=== PATIENT | female | born 1930 | race African-American/Black ===

== ENCOUNTER 2018-04-10 23:26 | Inpatient (IN) | payer MEDICARE, MEDICAID ==
[~2018-04-10] VITALS: Ht 177.8 cm; Wt 91.2 kg
[2018-04-11] MEDS ORDERED: KETOROLAC 30MG/ML VIAL IV STA (00:04)
[2018-04-11 00:50] LABS: BASOPHILS % 0.7 % (0.0-2.0); EOSINOPHILS % 0.5 % (0.0-5.0); HEMATOCRIT. 29.7 % (36.0-48.0); HEMOGLOBIN. 9.3 g/dL (12.0-16.0); LYMPHOCYTES % 19.2 % (20.0-50.0); MEAN CORPUSCULAR HEMOGLOBIN 30.3 pg (28.0-32.0); MEAN CORPUSCULAR VOLUME 96.7 fL (81.0-99.0); MONOCYTES % 2.1 % (2.0-8.0); NEUTROPHILS % 77.5 % (40.0-76.0); RED BLOOD CELL COUNT 3.08 mill/uL (4.2-5.4); RED CELL DISTRIBUTION WIDTH 16.3 % (11.6-14.6)
[2018-04-11 00:52] LABS: CHLORIDE 107 mEq/L (98-107)
[2018-04-11] MEDS ORDERED: DEXTROSE 50% WATER 50ML SYRINGE IV NR (01:15)
[2018-04-11] MEDS ORDERED: ALBUTEROL (0.083%) 2.5MG/3ML NEB HHN NR (01:15)
[2018-04-11] MEDS ORDERED: SODIUM POLYSTYRENE SULFONATE 15 G/60 ML BOT PO NR ×2 (01:15→13:30)
[2018-04-11] MEDS ORDERED: SODIUM BICARBONATE 8.4% 1 MEQ/ML 50ML SYR IV NR (01:15)
[2018-04-11] MEDS ORDERED: CALCIUM CHLORIDE 1GM/10ML SYR IV NR (01:15)
[2018-04-11] MEDS ORDERED: INSULIN REGULAR (HUMULIN R) 300UNITS/3ML IV NR (01:15)
[2018-04-11 01:25] LABS: PLATELET 222 x1000/uL (130-400)
[2018-04-11 01:26] LABS: MEAN PLATELET VOLUME 9.1 fl (7.4-10.4)
[2018-04-11] MEDS ORDERED: ALBUTEROL (0.5%) 2.5MG/0.5ML NEB HHN ONE (03:01)
[2018-04-11] MEDS ORDERED: ONDANSETRON HCL 4MG/2ML INJ IV PRN (03:15)
[2018-04-11] MEDS ORDERED: HYDROCODONE/ACETAMINOPHEN 5/325MG TABLET PO PRN (03:15)
[2018-04-11] MEDS ORDERED: CLONIDINE 0.1MG TABLET PO PRN (03:15)
[2018-04-11] MEDS ORDERED: GUAIFENESIN 200MG/10ML SUGAR FREE UDC PO PRN (03:15)
[2018-04-11] MEDS ORDERED: HYDROMORPHONE HCL/PF 2MG/ML CPJ IV PRN (03:15)
[2018-04-11] MEDS ORDERED: DOCUSATE SODIUM 100MG CAPSULE PO PRN (03:15)
[2018-04-11] MEDS ORDERED: LORAZEPAM 2MG/ML CPJ IV PRN (03:15)
[2018-04-11] MEDS ORDERED: ACETAMINOPHEN 325MG TABLET PO PRN (03:15)
[2018-04-11 06:45] LABS: CREATINE KINASE MB FRACTION 2.1 ng/mL (0.5-3.6)
[2018-04-11 06:55] VITALS: BP 161/51
[2018-04-11 08:32] VITALS: BP 154/58
[2018-04-11] MEDS: ASPIRIN 81MG EC TABLET PO SCH (09:18)
[2018-04-11] MEDS: ENOXAPARIN 40MG/0.4ML SYR SUBCUT SCH (09:19)
[2018-04-11] MEDS ORDERED: ERGO400C PO (09:32)
[2018-04-11] MEDS ORDERED: ASPI-1159 PO (09:32)
[2018-04-11] MEDS ORDERED: VALS80TA2 PO (09:32)
[2018-04-11] MEDS ORDERED: METO25TA6 PO (09:32)
[2018-04-11] MEDS ORDERED: ATOR40TA70 PO (09:32)
[2018-04-11] MEDS: SODIUM CHLORIDE 0.9% 1,000 ML IV SCH (11:45)
[2018-04-11 12:32] VITALS: BP 148/66
[2018-04-11 12:40] VITALS: BP 147/48
[2018-04-11 16:14] VITALS: BP 154/58
[2018-04-11 20:00] VITALS: BP 157/47
[2018-04-11] MEDS: ATORVASTATIN CALCIUM 40MG TABLET PO SCH (20:51)
[2018-04-12 00:04] VITALS: BP 111/67
[2018-04-12] MEDS: SODIUM CHLORIDE 0.9% 1,000 ML IV SCH ×2 (00:50→14:25)
[2018-04-12 04:00] VITALS: BP 159/66
[2018-04-12 06:58] LABS: BASOPHILS % 0.9 % (0.0-2.0); EOSINOPHILS % 3.3 % (0.0-5.0); HEMATOCRIT. 23.3 % (36.0-48.0); HEMOGLOBIN. 7.7 g/dL (12.0-16.0); MEAN CORPUSCULAR HEMOGLOBIN 31.3 pg (28.0-32.0); MEAN CORPUSCULAR VOLUME 94.8 fL (81.0-99.0); MEAN PLATELET VOLUME 8.6 fl (7.4-10.4); MONOCYTES % 6.3 % (2.0-8.0); NEUTROPHILS % 51.5 % (40.0-76.0); PLATELET 194 x1000/uL (130-400); RED BLOOD CELL COUNT 2.46 mill/uL (4.2-5.4); RED CELL DISTRIBUTION WIDTH 15.7 % (11.6-14.6)
[2018-04-12 08:00] VITALS: BP 115/61
[2018-04-12] MEDS: ENOXAPARIN 40MG/0.4ML SYR SUBCUT SCH (09:00)
[2018-04-12] MEDS: ASPIRIN 81MG EC TABLET PO SCH (09:00)
[2018-04-12 10:12] LABS: CHLORIDE 110 mEq/L (98-107)
[2018-04-12 10:19] LABS: LDL CHOLESTEROL 63 mg/dL (5-100)
[2018-04-12 10:21] LABS: HDL CHOLESTEROL 49 mg/dL (40-59)
[2018-04-12 11:25] VITALS: BP 140/59
[2018-04-12] MEDS ORDERED: SODIUM POLYSTYRENE SULFONATE 15 G/60 ML BOT PO ONE (13:45)
[2018-04-12] MEDS ORDERED: SODIUM POLYSTYRENE SULFONATE 15 G/60 ML BOT PO NR (14:30)
[2018-04-12 17:47] LABS: CLARITY URINE CLOUDY (CLEAR); COLOR URINE YELLOW (YELLOW); KETONES URINE NEGATIVE (NEGATIVE); LEUKOCYTE ESTERASE URINE 2+ (NEGATIVE); NITRITE URINE POSITIVE (NEGATIVE); OCCULT BLOOD URINE 1+ (NEGATIVE); PROTEIN URINE TRACE (NEGATIVE); SPECIFIC GRAVITY URINE 1.003 (1.005-1.030); UROBILINOGEN URINE 0.2 E.U./dL (0.2-1.0)
[2018-04-12] MEDS: ATORVASTATIN CALCIUM 40MG TABLET PO SCH (21:10)
[2018-04-13] VITALS: BP 156/56
[2018-04-13] MEDS: SODIUM CHLORIDE 0.9% 1,000 ML IV SCH (03:45)
[2018-04-13 04:00] VITALS: BP 159/51
[2018-04-13 06:28] LABS: BASOPHILS % 0.8 % (0.0-2.0); EOSINOPHILS % 4.4 % (0.0-5.0); HEMATOCRIT. 23.8 % (36.0-48.0); HEMOGLOBIN. 7.8 g/dL (12.0-16.0); LYMPHOCYTES % 24.6 % (20.0-50.0); MEAN CORPUSCULAR HEMOGLOBIN 30.8 pg (28.0-32.0); MEAN CORPUSCULAR VOLUME 93.9 fL (81.0-99.0); MEAN PLATELET VOLUME 8.7 fl (7.4-10.4); MONOCYTES % 6.4 % (2.0-8.0); NEUTROPHILS % 63.8 % (40.0-76.0); PLATELET 193 x1000/uL (130-400); RED BLOOD CELL COUNT 2.53 mill/uL (4.2-5.4); RED CELL DISTRIBUTION WIDTH 15.7 % (11.6-14.6)
[2018-04-13] MEDS: ASPIRIN 81MG EC TABLET PO SCH (08:39)
[2018-04-13] MEDS: ENOXAPARIN 40MG/0.4ML SYR SUBCUT SCH (08:40)
[2018-04-13 09:52] LABS: CHLORIDE 116 mEq/L (98-107)
[2018-04-13 12:00] VITALS: BP 176/62
[2018-04-13 16:00] VITALS: BP 188/71
[2018-04-13] MEDS ORDERED: HYDRALAZINE HCL 50MG TABLET PO SCH (16:00)
[2018-04-13] MEDS ORDERED: SODIUM CHLORIDE 0.45% 1,000 ML IV SCH (18:00)
[2018-04-13 20:00] VITALS: BP 184/55
[2018-04-13] MEDS: HYDRALAZINE HCL 50MG TABLET PO SCH (20:46)
[2018-04-13] MEDS: ATORVASTATIN CALCIUM 40MG TABLET PO SCH (20:46)
[2018-04-13 21:49] VITALS: BP 154/49
[2018-04-14] VITALS: BP 173/62
[2018-04-14 00:15] VITALS: BP 166/52
[2018-04-14 04:00] VITALS: BP 157/48
[2018-04-14] MEDS: HYDRALAZINE HCL 50MG TABLET PO SCH (05:29)
[2018-04-14 08:43] VITALS: BP 119/34
[2018-04-14 10:10] LABS: BASOPHILS % 0.7 % (0.0-2.0); EOSINOPHILS % 4.5 % (0.0-5.0); HEMATOCRIT. 23.8 % (36.0-48.0); HEMOGLOBIN. 7.7 g/dL (12.0-16.0); MEAN CORPUSCULAR HEMOGLOBIN 30.4 pg (28.0-32.0); MEAN CORPUSCULAR VOLUME 93.8 fL (81.0-99.0); MEAN PLATELET VOLUME 8.6 fl (7.4-10.4); NEUTROPHILS % 60.8 % (40.0-76.0); PLATELET 219 x1000/uL (130-400); RED BLOOD CELL COUNT 2.54 mill/uL (4.2-5.4); RED CELL DISTRIBUTION WIDTH 15.4 % (11.6-14.6)
[2018-04-14 10:36] VITALS: BP 128/82
[2018-04-14] MEDS ORDERED: EPOETIN ALFA 10000UNITS/ML VIAL SUBCUT SCH (21:00)
[2018-04-15 13:06] LABS: A/G RATIO 0.8 (0.7-1.7); ALPHA-1-GLOBULIN 0.2 g/dL (0.0-0.4); ALPHA-2-GLOBULIN 0.6 g/dL (0.4-1.0); BETA GLOBULIN 0.9 g/dL (0.7-1.3); COMPLEMENT C3 106 mg/dL (82-167); GAMMA GLOBULINS 2.2 g/dL (0.4-1.8); GLOBULIN TOTAL 3.9 g/dL (2.2-3.9); M-SPIKE Not Observed g/dL (Not Observed); TOTAL PROTEIN SERUM 6.9 g/dL (6.0-8.5)
[2018-04-16] MEDS ORDERED: VALS80TA30 MT (00:56)
[2018-04-16] MEDS ORDERED: METO25TA6 MT (00:58)
[2018-04-16 13:06] LABS: ANTI-NUCLEAR ANTIBODIES DIRECT Positive (Negative)
== END 2018-04-14 11:20 | disposition home health service (06) | DRG 422 ==
LOC: ER 23:26 → ENRESERV 04-11 02:53 → 6WST 04-11 06:49
PROVIDERS: ADMIT Hospitalist; ATTEND Hospitalist
DX: E87.5 Hyperkalemia (principal); E86.0 Dehydration; N17.9 Acute kidney failure, unspecified; E87.2 Acidosis; E11.22 Type 2 diabetes mellitus with diabetic chronic kidney disease; R07.9 Chest pain, unspecified; R94.31 Abnormal electrocardiogram [ECG] [EKG]; R01.1 Cardiac murmur, unspecified; R09.89 Other specified symptoms and signs involving the circulatory and respiratory systems; E87.1 Hypo-osmolality and hyponatremia; D63.8 Anemia in other chronic diseases classified elsewhere; N18.9 Chronic kidney disease, unspecified; R00.1 Bradycardia, unspecified; J45.909 Unspecified asthma, uncomplicated; I12.9 Hypertensive chronic kidney disease with stage 1 through stage 4 chronic kidney disease, or unspecified chronic kidney disease; Z88.0 Allergy status to penicillin
CPT/HCPCS: 36415; 71045; 76770; 80048; 80061; 82270; 82550; 82553; 82962; 83880; 84155; 84165; 84484; 86038; 86160; 93005; 93306; 93880; 93970; 94640; 99285; A6261; C1893; J1650; J1815; J1885; J2060; J3490; J7030; J7611

== ENCOUNTER 2018-09-30 08:58 | Emergency (ER) | payer MEDICARE, MEDICAID ==
[~2018-09-30] VITALS: Ht 167.6 cm; Wt 92.3 kg
[~2018-09-30 08:58] MED LIST: ATOR40TA70 PO; METO25TA6 MT; VALS80TA30 MT
[2018-09-30 09:34] LABS: BASOPHILS % 0.3 % (0.0-2.0); HEMATOCRIT. 32.8 % (36.0-48.0); HEMOGLOBIN. 10.5 g/dL (12.0-16.0); LYMPHOCYTES % 12.8 % (20.0-50.0); MEAN CORPUSCULAR HEMOGLOBIN 31.8 pg (28.0-32.0); MEAN CORPUSCULAR VOLUME 98.8 fL (81.0-99.0); MEAN PLATELET VOLUME 8.5 fl (7.4-10.4); MONOCYTES % 2.7 % (2.0-8.0); NEUTROPHILS % 84.2 % (40.0-76.0); PLATELET 232 x1000/uL (130-400); RED BLOOD CELL COUNT 3.32 mill/uL (4.2-5.4); RED CELL DISTRIBUTION WIDTH 15.7 % (11.6-14.6)
[2018-09-30 09:40] LABS: INR 1.1
[2018-09-30 09:49] LABS: CHLORIDE 111 mEq/L (98-107)
[2018-09-30 09:54] LABS: ETHANOL BLOOD < 10 mg/dL
[2018-09-30 09:58] LABS: LDL CHOLESTEROL 105 mg/dL (5-100)
[2018-09-30] MEDS ORDERED: IOHEXOL-350 100 ML BOTTLE ONE (12:05)
[2018-09-30 12:15] LABS: CLARITY URINE CLEAR (CLEAR); COLOR URINE YELLOW (YELLOW); KETONES URINE NEGATIVE (NEGATIVE); LEUKOCYTE ESTERASE URINE NEGATIVE (NEGATIVE); NITRITE URINE NEGATIVE (NEGATIVE); OCCULT BLOOD URINE 2+ (NEGATIVE); PROTEIN URINE 3+ (NEGATIVE); UROBILINOGEN URINE 0.2 E.U./dL (0.2-1.0)
[2018-09-30 12:40] LABS: *BENZODIAZEPINES SCREEN URINE NEGATIVE (NEGATIVE); *COCAINE SCREEN URINE NEGATIVE (NEGATIVE); METHADONE URINE SCREEN NEGATIVE (NEGATIVE); OPIATES URINE SCREEN NEGATIVE (NEGATIVE)
[2018-09-30 12:41] LABS: *BARBITURATES SCREEN URINE NEGATIVE (NEGATIVE); CANNABINOID URINE SCREEN NEGATIVE (NEGATIVE); PHENCYCLIDINE URINE SCREEN NEGATIVE (NEGATIVE)
[2018-09-30 12:42] LABS: *AMPHETAMINES SCREEN URINE NEGATIVE (NEGATIVE)
[2018-09-30 12:56] VITALS: BP 238/113
== END 2018-09-30 13:16 | disposition short-term general hospital (02) ==
LOC: ER 08:58
DX: I63.411 Cerebral infarction due to embolism of right middle cerebral artery (principal); E78.00 Pure hypercholesterolemia, unspecified; I10 Essential (primary) hypertension; J45.909 Unspecified asthma, uncomplicated; I25.2 Old myocardial infarction; M48.00 Spinal stenosis, site unspecified; Z88.0 Allergy status to penicillin; Z79.899 Other long term (current) drug therapy
CPT/HCPCS: 36415; 70450; 70496; 71045; 80053; 80305; 80320; 81003; 82962; 83721; 84484; 85025; 85610; 93005; 99285; Q9967; G0480

== ENCOUNTER 2019-01-16 18:45 | Inpatient (IN) | payer MEDICARE, MEDICAID ==
[~2019-01-16] VITALS: Ht 167.6 cm; Wt 89.8 kg
[2019-01-16 23:11] LABS: BASOPHILS % 0.3 % (0.0-2.0); EOSINOPHILS % 0.5 % (0.0-5.0); HEMATOCRIT. 23.2 % (36.0-48.0); HEMOGLOBIN. 7.5 g/dL (12.0-16.0); LYMPHOCYTES % 13.4 % (20.0-50.0); MEAN CORPUSCULAR HEMOGLOBIN 31.5 pg (28.0-32.0); MEAN CORPUSCULAR VOLUME 97.2 fL (81.0-99.0); MEAN PLATELET VOLUME 7.2 fl (7.4-10.4); MONOCYTES % 7.7 % (2.0-8.0); NEUTROPHILS % 78.1 % (40.0-76.0); PLATELET 423 x1000/uL (130-400); RED BLOOD CELL COUNT 2.39 mill/uL (4.2-5.4); RED CELL DISTRIBUTION WIDTH 15.3 % (11.6-14.6)
[2019-01-16 23:18] LABS: CHLORIDE 108 mEq/L (98-107)
[2019-01-17] MEDS ORDERED: CLINDAMYCIN 600 MG in DEXTROSE 5% WATER 50 ML IV ONE (00:45)
[2019-01-17] MEDS ORDERED: CLINDAMYCIN 600 MG in SODIUM CHLORIDE 0.9% 50 ML IV NR (01:30)
[2019-01-17 02:44] LABS: CLARITY URINE CLOUDY (CLEAR); COLOR URINE YELLOW (YELLOW); KETONES URINE NEGATIVE (NEGATIVE); LEUKOCYTE ESTERASE URINE NEGATIVE (NEGATIVE); NITRITE URINE NEGATIVE (NEGATIVE); OCCULT BLOOD URINE NEGATIVE (NEGATIVE); PROTEIN URINE 2+ (NEGATIVE); SPECIFIC GRAVITY URINE 1.017 (1.005-1.030); UROBILINOGEN URINE 0.2 E.U./dL (0.2-1.0)
[2019-01-17] MEDS ORDERED: ONDANSETRON HCL 4MG/2ML INJ IV PRN (06:15)
[2019-01-17] MEDS ORDERED: ACETAMINOPHEN 325MG TABLET PO PRN (06:15)
[2019-01-17 08:00] VITALS: BP 137/84
[2019-01-17] MEDS: ASPIRIN 81MG EC TABLET PO SCH (09:20)
[2019-01-17] MEDS: ENOXAPARIN 30MG/0.3ML SYR SUBCUT SCH ×2 (09:21→20:42)
[2019-01-17] MEDS: DAPTOMYCIN 250 MG in SODIUM CHLORIDE 0.9% 50 ML IV SCH (10:57)
[2019-01-17] MEDS: SODIUM CHLORIDE 0.45% 1,000 ML IV SCH (10:58)
[2019-01-17 20:00] VITALS: BP 141/54
[2019-01-17] MEDS: CLONIDINE 0.1MG TABLET PO PRN (23:50)
[2019-01-18] VITALS: BP 182/68
[2019-01-18] MEDS: SODIUM CHLORIDE 0.45% 1,000 ML IV SCH (02:06)
[2019-01-18 04:00] VITALS: BP 159/65
[2019-01-18] MEDS: HYDROCODONE/ACETAMINOPHEN 5/325MG TABLET PO PRN ×2 (05:54→23:20)
[2019-01-18] MEDS: ASPIRIN 81MG EC TABLET PO SCH (08:46)
[2019-01-18] MEDS: DAPTOMYCIN 250 MG in SODIUM CHLORIDE 0.9% 50 ML IV SCH (08:46)
[2019-01-18] MEDS: ENOXAPARIN 30MG/0.3ML SYR SUBCUT SCH (08:47)
[2019-01-18 09:25] LABS: BASOPHILS % 0.3 % (0.0-2.0); EOSINOPHILS % 1.3 % (0.0-5.0); LYMPHOCYTES % 13.9 % (20.0-50.0); MEAN CORPUSCULAR HEMOGLOBIN 30.6 pg (28.0-32.0); MEAN PLATELET VOLUME 7.1 fl (7.4-10.4); NEUTROPHILS % 75.5 % (40.0-76.0); PLATELET 417 x1000/uL (130-400); RED CELL DISTRIBUTION WIDTH 15.3 % (11.6-14.6)
[2019-01-18 09:29] LABS: CHLORIDE 107 mEq/L (98-107)
[2019-01-18 09:30] LABS: HEMATOCRIT. 19.9 % (36.0-48.0); HEMOGLOBIN. 6.4 g/dL (12.0-16.0)
[2019-01-18] MEDS ORDERED: LIDOCAINE HCL 1% 20ML VIAL (Pyxis) INJ ONE (11:02)
[2019-01-18] MEDS ORDERED: SODIUM BICARBONATE 4% (2.4MEQ) 5ML VIAL IV ONE (11:03)
[2019-01-18] MEDS ORDERED: HEPARIN 100 UNITS/1 ML VIAL IVF PRN (12:00)
[2019-01-18 16:14] VITALS: BP 159/61
[2019-01-18 16:29] VITALS: BP 148/50
[2019-01-18 20:00] VITALS: BP 162/80
[2019-01-18] MEDS: CLONIDINE 0.1MG TABLET PO PRN (23:09)
[2019-01-19] VITALS: BP 164/45
[2019-01-19] MEDS: CLONIDINE 0.1MG TABLET PO PRN (00:21)
[2019-01-19 01:23] LABS: HEMATOCRIT 21.8 % (36.0-48.0); HEMOGLOBIN 7.3 g/dL (12.0-16.0)
[2019-01-19 04:00] VITALS: BP 141/44
[2019-01-19 08:00] VITALS: BP 132/46
[2019-01-19] MEDS: DAPTOMYCIN 250 MG in SODIUM CHLORIDE 0.9% 50 ML IV SCH (08:00)
[2019-01-19] MEDS: ASPIRIN 81MG EC TABLET PO SCH (09:24)
[2019-01-19] MEDS ORDERED: LIDOCAINE HCL 4% CREAM 76GM TUBE TP PRN (10:45)
[2019-01-19 12:00] VITALS: BP 135/47
[2019-01-19] MEDS: SODIUM CHLORIDE 0.45% 1,000 ML IV SCH (12:15)
[2019-01-19] MEDS: HYDROCODONE/ACETAMINOPHEN 5/325MG TABLET PO PRN (14:10)
[2019-01-19 16:00] VITALS: BP 143/46
[2019-01-19 16:16] LABS: HEMATOCRIT 24.6 % (36.0-48.0)
[2019-01-19 20:00] VITALS: BP 152/66
[2019-01-20] VITALS: BP 199/83
[2019-01-20] MEDS: CLONIDINE 0.1MG TABLET PO PRN (00:58)
[2019-01-20] MEDS: SODIUM CHLORIDE 0.45% 1,000 ML IV SCH (03:53)
[2019-01-20 04:00] VITALS: BP 165/67
[2019-01-20 08:00] VITALS: BP 132/64
[2019-01-20] MEDS: DAPTOMYCIN 250 MG in SODIUM CHLORIDE 0.9% 50 ML IV SCH (08:06)
[2019-01-20] MEDS: ASPIRIN 81MG EC TABLET PO SCH (08:06)
[2019-01-20 12:00] VITALS: BP 138/66
[2019-01-20 16:00] VITALS: BP 146/65
[2019-01-20] MEDS: HYDROCODONE/ACETAMINOPHEN 5/325MG TABLET PO PRN (16:22)
[2019-01-20 17:24] VITALS: BP 146/5
== END 2019-01-20 19:55 | disposition home or self-care (01) | DRG 314 ==
LOC: ER 18:45 → 6EST 01-17 02:51 → EDBEDREQTM 01-17 03:13 → EDBEDREQ 01-17 03:13 → ENRESERV 01-17 04:55
PROVIDERS: ADMIT Hospitalist; ATTEND Hospitalist
PROC: 05H533Z Insertion of Infusion Device into Right Subclavian Vein, Percutaneous Approach (ICD-10-PCS; 2019-01-18)
PROC: B546ZZA Ultrasonography of Right Subclavian Vein, Guidance (ICD-10-PCS; 2019-01-18)
PROC: 30233N1 Transfusion of Nonautologous Red Blood Cells into Peripheral Vein, Percutaneous Approach (ICD-10-PCS; 2019-01-18)
PROC: 0QBM0ZZ Excision of Left Tarsal, Open Approach (ICD-10-PCS; principal; 2019-01-19)
DX: M86.8X7 Other osteomyelitis, ankle and foot (principal); E43 Unspecified severe protein-calorie malnutrition; L89.152 Pressure ulcer of sacral region, stage 2; N17.9 Acute kidney failure, unspecified; G93.41 Metabolic encephalopathy; I48.91 Unspecified atrial fibrillation; L03.116 Cellulitis of left lower limb; L89.020 Pressure ulcer of left elbow, unstageable; L97.529 Non-pressure chronic ulcer of other part of left foot with unspecified severity; D64.9 Anemia, unspecified; L02.612 Cutaneous abscess of left foot; E78.00 Pure hypercholesterolemia, unspecified; F03.90 Unspecified dementia, unspecified severity, without behavioral disturbance, psychotic disturbance, mood disturbance, and anxiety; I10 Essential (primary) hypertension; E78.5 Hyperlipidemia, unspecified; I73.9 Peripheral vascular disease, unspecified; J45.909 Unspecified asthma, uncomplicated; R79.89 Other specified abnormal findings of blood chemistry; B96.5 Pseudomonas (aeruginosa) (mallei) (pseudomallei) as the cause of diseases classified elsewhere; B95.61 Methicillin susceptible Staphylococcus aureus infection as the cause of diseases classified elsewhere; B95.2 Enterococcus as the cause of diseases classified elsewhere; M24.571 Contracture, right ankle; M24.572 Contracture, left ankle; I69.344 Monoplegia of lower limb following cerebral infarction affecting left non-dominant side; I25.2 Old myocardial infarction; Z74.01 Bed confinement status; Z91.19 Patient's noncompliance with other medical treatment and regimen; Z79.899 Other long term (current) drug therapy; Z88.0 Allergy status to penicillin; Z68.32 Body mass index [BMI] 32.0-32.9, adult
CPT/HCPCS: 36415; 36573; 71045; 73630; 73721; 81003; 83540; 83550; 83735; 85014; 85018; 85651; 86140; 86850; 86900; 86920; 87070; 87075; 87077; 87186; 93923; 93970; 96365; 99285; C1725; C1893; J0878; J1642; J1650; J3490; J7040; J7060; P9016

== ENCOUNTER 2019-01-25 01:54 | Inpatient (IN) | payer MEDICARE, MEDICAID ==
[2019-01-25] VITALS (47 sets, daily range): BP systolic 89–162; BP diastolic 48–96
[~2019-01-25] VITALS: Ht 167.6 cm; Wt 90.7 kg
[2019-01-25] MEDS ORDERED: MEROPENEM 1,000 MG in SODIUM CHLORIDE 0.9% 100 ML IV ONE (03:00)
[2019-01-25] MEDS ORDERED: SODIUM CHLORIDE 0.9% 1000ML BAG (SEPSIS BOLUS) IV ONE (03:00)
[2019-01-25] MEDS ORDERED: VANCOMYCIN 1 G PREMIX 200 ML IV ONE (03:00)
[2019-01-25] MEDS ORDERED: DILTIAZEM HCL 5MG/ML 5ML VIAL IV ONE ×2 (03:30→04:15)
[2019-01-25 03:35] LABS: CHLORIDE 108 mEq/L (98-107)
[2019-01-25 03:41] LABS: BASOPHILS % 0.5 % (0.0-2.0); EOSINOPHILS % 0.3 % (0.0-5.0); HEMOGLOBIN. 7.1 g/dL (12.0-16.0); MEAN CORPUSCULAR HEMOGLOBIN 30.5 pg (28.0-32.0); MEAN CORPUSCULAR VOLUME 95.2 fL (81.0-99.0); MEAN PLATELET VOLUME 7.5 fl (7.4-10.4); MONOCYTES % 5.1 % (2.0-8.0); NEUTROPHILS % 84.1 % (40.0-76.0); PLATELET 513 x1000/uL (130-400); RED BLOOD CELL COUNT 2.31 mill/uL (4.2-5.4); RED CELL DISTRIBUTION WIDTH 15.7 % (11.6-14.6)
[2019-01-25 04:23] LABS: PROTHROMBIN TIME 10.8 sec (9.6-11.0)
[2019-01-25] MEDS ORDERED: AMIODARONE HCL 900 MG in DEXT 5% WATER 482 ML IV PRN ×2 (05:00→05:30)
[2019-01-25] MEDS ORDERED: AMIODARONE HCL 150 MG in DEXT 5% WATER 100 ML IV ONE (05:00)
[2019-01-25] MEDS ORDERED: CLONIDINE 0.1MG TABLET PO PRN (05:30)
[2019-01-25] MEDS ORDERED: MAGNESIUM/ALUMINUM HYDROXIDE/SIMETHICONE 30ML UDC PO PRN (05:30)
[2019-01-25] MEDS ORDERED: LORAZEPAM 2MG/ML CPJ IV PRN (05:30)
[2019-01-25] MEDS ORDERED: DOCUSATE SODIUM 100MG CAPSULE PO PRN (05:30)
[2019-01-25] MEDS ORDERED: ONDANSETRON HCL 4MG/2ML INJ IV PRN (05:30)
[2019-01-25] MEDS ORDERED: ACETAMINOPHEN 325MG TABLET PO PRN (05:30)
[2019-01-25] MEDS ORDERED: HYDROCODONE/ACETAMINOPHEN 5/325MG TABLET PO PRN (05:30)
[2019-01-25] MEDS: MORPHINE SULFATE 2 MG/ML CPJ (NOT FOR IM USE) IV PRN ×2 (08:39→20:49)
[2019-01-25] MEDS: AMIODARONE HCL 900 MG in DEXT 5% WATER 482 ML IV SCH (09:00)
[2019-01-25] MEDS ORDERED: ENOXAPARIN 40MG/0.4ML SYR SUBCUT SCH (10:00)
[2019-01-25] MEDS ORDERED: METOPROLOL TARTRATE 25MG TABLET PO SCH (10:00)
[2019-01-25] MEDS ORDERED: DAPTOMYCIN 350 MG in SODIUM CHLORIDE 0.9% 50 ML IV SCH (11:00)
[2019-01-25 11:36] LABS: CLARITY URINE TURBID (CLEAR); COLOR URINE YELLOW (YELLOW); KETONES URINE NEGATIVE (NEGATIVE); LEUKOCYTE ESTERASE URINE 2+ (NEGATIVE); NITRITE URINE NEGATIVE (NEGATIVE); OCCULT BLOOD URINE NEGATIVE (NEGATIVE); PROTEIN URINE 1+ (NEGATIVE); SPECIFIC GRAVITY URINE 1.021 (1.005-1.030); UROBILINOGEN URINE 0.2 E.U./dL (0.2-1.0)
[2019-01-25 12:01] LABS: CREATINE KINASE MB FRACTION 1.8 ng/mL (0.5-3.6)
[2019-01-25] MEDS ORDERED: ASPI-1393 MT (12:06)
[2019-01-25 12:23] LABS: MEAN CORPUSCULAR HEMOGLOBIN 30.8 pg (28.0-32.0); MEAN PLATELET VOLUME 7.6 fl (7.4-10.4); PLATELET 412 x1000/uL (130-400); RED BLOOD CELL COUNT 1.91 mill/uL (4.2-5.4); RED CELL DISTRIBUTION WIDTH 16.1 % (11.6-14.6)
[2019-01-25 12:28] LABS: HEMOGLOBIN. 5.9 g/dL (12.0-16.0)
[2019-01-25 12:29] LABS: HEMATOCRIT. 18.5 % (36.0-48.0)
[2019-01-25] MEDS: DEXT 5%/0.45% NACL 1000ML 1,000 ML IV SCH ×2 (12:31→18:41)
[2019-01-25] MEDS: AMIODARONE HCL 200 MG TABLET PO SCH ×2 (12:31→20:38)
[2019-01-25] MEDS ORDERED: DEXTROSE 50% WATER 50ML SYRINGE IV PRN (12:45)
[2019-01-25] MEDS: INSULIN LISPRO 100 UNITS/ML SUBCUT SCH ×3 (13:20→20:46)
[2019-01-25] MEDS: BLOOD SUGAR DIAGNOSTIC STRIP TEST SCH ×3 (13:48→20:39)
[2019-01-25 13:59] LABS: PLATELET ESTIMATE NORMAL
[2019-01-25] MEDS ORDERED: VANCOMYCIN 500 MG PREMIX 100 ML IV NR (18:00)
[2019-01-25] MEDS: CEFTAZIDIME PENTAHYDRATE 1 G in DEXTROSE 5% WATER 50 ML IV SCH (18:56)
[2019-01-25] MEDS: METRONIDAZOLE 500 MG PREMIX 100 ML IV SCH (20:38)
[2019-01-25] MEDS ORDERED: METRONIDAZOLE 500 MG PREMIX 100 ML IV SCH (21:00)
[2019-01-26] VITALS (44 sets, daily range): BP systolic 86–172; BP diastolic 50–104
[2019-01-26] MEDS: CEFTAZIDIME PENTAHYDRATE 1 G in DEXTROSE 5% WATER 50 ML IV SCH ×2 (04:23→17:16)
[2019-01-26] MEDS: DEXT 5%/0.45% NACL 1000ML 1,000 ML IV SCH ×2 (04:23→20:27)
[2019-01-26] MEDS: AMIODARONE HCL 900 MG in DEXT 5% WATER 482 ML IV SCH (04:24)
[2019-01-26] MEDS: MORPHINE SULFATE 2 MG/ML CPJ (NOT FOR IM USE) IV PRN ×2 (04:53→12:53)
[2019-01-26 06:18] LABS: HEMATOCRIT. 32.7 % (36.0-48.0); HEMOGLOBIN. 10.3 g/dL (12.0-16.0); MEAN CORPUSCULAR VOLUME 95.2 fL (81.0-99.0); RED BLOOD CELL COUNT 3.43 mill/uL (4.2-5.4); RED CELL DISTRIBUTION WIDTH 16.7 % (11.6-14.6)
[2019-01-26 06:47] LABS: CHLORIDE 110 mEq/L (98-107)
[2019-01-26 06:56] LABS: T4 FREE 0.68 ng/dL (0.76-1.46)
[2019-01-26] MEDS: AMIODARONE HCL 200 MG TABLET PO SCH ×2 (08:34→20:27)
[2019-01-26] MEDS: METRONIDAZOLE 500 MG PREMIX 100 ML IV SCH ×2 (08:34→20:27)
[2019-01-26] MEDS: BLOOD SUGAR DIAGNOSTIC STRIP TEST SCH ×4 (08:35→21:15)
[2019-01-26] MEDS: INSULIN LISPRO 100 UNITS/ML SUBCUT SCH ×4 (09:02→21:00)
[2019-01-26 10:12] LABS: BG BASE EXCESS -8.3 mmol/L (-2.0-2.0); BG CARBOXYHEMOGLOBIN 0.3 % (0.5-1.5); BG DEOXYHEMOGLOBIN 2.2 % (0.0-5.0); BG FRACTION INSPIRED OXYGEN 21; BG METHEMOGLOBIN 0.3 % (0.0-1.5); BG OXYGEN SATURATION 97.8 % (92.0-98.5); BG OXYHEMOGLOBIN 97.2 % (94.0-97.0); BG PCO2 29.2 mmHg (35.0-45.0); BG PH 7.357 (7.350-7.450); BG PO2 102.4 mmHg (75.0-100.0); BG SAMPLE SITE RIGHT RADIAL; BG TOTAL HEMOGLOBIN 10.9 g/dL (12.0-18.0); BG VENT MODE ROOM AIR
[2019-01-26 10:13] LABS: NUCLEATED RED BLOOD CELLS 1 /100 WBC
[2019-01-26 10:15] LABS: PLATELET 372 x1000/uL (130-400)
[2019-01-26] MEDS ORDERED: AMIODARONE HCL 150 MG in DEXT 5% WATER 100 ML IV SCH (13:00)
[2019-01-26] MEDS: NYSTATIN POWDER 15GM TOP SCH ×2 (13:51→17:16)
[2019-01-26] MEDS: CITRIC ACID/SODIUM CITRATE SOLN 15ML UDC PO SCH (17:17)
[2019-01-27] VITALS (51 sets, daily range): BP systolic 80–161; BP diastolic 39–110
[2019-01-27] MEDS: CEFTAZIDIME PENTAHYDRATE 1 G in DEXTROSE 5% WATER 50 ML IV SCH ×2 (04:24→20:05)
[2019-01-27 05:44] LABS: HEMATOCRIT. 27.4 % (36.0-48.0); HEMOGLOBIN. 9.1 g/dL (12.0-16.0); MEAN CORPUSCULAR HEMOGLOBIN 30.4 pg (28.0-32.0); MEAN CORPUSCULAR VOLUME 91.9 fL (81.0-99.0); MEAN PLATELET VOLUME 7.1 fl (7.4-10.4); PLATELET 374 x1000/uL (130-400); RED BLOOD CELL COUNT 2.98 mill/uL (4.2-5.4); RED CELL DISTRIBUTION WIDTH 16.3 % (11.6-14.6)
[2019-01-27] MEDS: BLOOD SUGAR DIAGNOSTIC STRIP TEST SCH ×3 (07:50→20:14)
[2019-01-27] MEDS: INSULIN LISPRO 100 UNITS/ML SUBCUT SCH ×3 (08:20→20:15)
[2019-01-27] MEDS: CITRIC ACID/SODIUM CITRATE SOLN 15ML UDC PO SCH ×3 (08:55→19:00)
[2019-01-27] MEDS: AMIODARONE HCL 200 MG TABLET PO SCH ×2 (08:55→20:39)
[2019-01-27] MEDS: METRONIDAZOLE 500 MG PREMIX 100 ML IV SCH ×2 (09:00→20:39)
[2019-01-27] MEDS: NYSTATIN POWDER 15GM TOP SCH ×3 (09:01→20:00)
[2019-01-27 09:18] LABS: NUCLEATED RED BLOOD CELLS 1 /100 WBC
[2019-01-27 09:19] LABS: PLATELET ESTIMATE NORMAL
[2019-01-27] MEDS: DEXT 5%/0.45% NACL 1000ML 1,000 ML IV SCH (09:57)
[2019-01-27] MEDS ORDERED: VANCOMYCIN 1250MG in DEXTROSE 5% WATER 250ML IV NR (10:00)
[2019-01-27] MEDS ORDERED: VANCOMYCIN 1 G PREMIX 200 ML IV NR (10:00)
[2019-01-27 10:15] LABS: INR 1.2; PARTIAL THROMBOPLASTIN TIME 41.8 sec (23.4-31.0); PROTHROMBIN TIME 12.1 sec (9.6-11.0)
[2019-01-27] MEDS ORDERED: VANCOMYCIN HCL 500 MG/VIAL ONE (15:07)
[2019-01-27] MEDS ORDERED: FENTANYL CITRATE/PF 50MCG/ML 2ML VIAL ONE (15:17)
[2019-01-27] MEDS ORDERED: LIDOCAINE HCL/PF 1% 10 MG/ML 5ML VIAL ONE (15:17)
[2019-01-27] MEDS ORDERED: PROPOFOL 200MG/20ML VIAL IV ONE (15:17)
[2019-01-27] MEDS ORDERED: CLINDAMYCIN 900 MG PREMIX 50 ML IV ONE (15:27)
[2019-01-27] MEDS ORDERED: EPHEDRINE SULFATE 50MG/ML VIAL ONE (16:50)
[2019-01-27] MEDS ORDERED: STERILE WATER FOR INJECTION 10ML VIAL ONE (16:52)
[2019-01-27] MEDS ORDERED: BUPIVACAINE HCL/PF 0.25% (2.5MG/ML) 10ML ONE (17:11)
[2019-01-27] MEDS ORDERED: FENTANYL CITRATE/PF 50MCG/ML 2ML VIAL IV PRN (18:00)
[2019-01-27] MEDS ORDERED: METOCLOPRAMIDE HCL 10MG/2ML VIAL IV PRN (18:00)
[2019-01-28] VITALS (71 sets, daily range): BP systolic 76–145; BP diastolic 40–65
[2019-01-28] MEDS ORDERED: PHENYLEPHRINE 20 MG in SODIUM CHLORIDE 0.9% 250 ML IV PRN (00:15)
[2019-01-28] MEDS ORDERED: SODIUM CHLORIDE 0.9% 500 ML IV ONE (01:00)
[2019-01-28] MEDS ORDERED: PHENYLEPHRINE 20 MG in DEXT 5% WATER 248 ML IV PRN (01:30)
[2019-01-28] MEDS: DEXT 5%/0.45% NACL 1000ML 1,000 ML IV SCH ×2 (04:20→18:38)
[2019-01-28] MEDS: CEFTAZIDIME PENTAHYDRATE 1 G in DEXTROSE 5% WATER 50 ML IV SCH (04:23)
[2019-01-28 05:43] LABS: MEAN CORPUSCULAR HEMOGLOBIN 30.3 pg (28.0-32.0); MEAN CORPUSCULAR VOLUME 93.5 fL (81.0-99.0); MEAN PLATELET VOLUME 7.2 fl (7.4-10.4); PLATELET 313 x1000/uL (130-400); RED BLOOD CELL COUNT 2.55 mill/uL (4.2-5.4); RED CELL DISTRIBUTION WIDTH 16.1 % (11.6-14.6)
[2019-01-28 06:54] LABS: HEMATOCRIT. 23.9 % (36.0-48.0); HEMOGLOBIN. 7.7 g/dL (12.0-16.0)
[2019-01-28] MEDS: BLOOD SUGAR DIAGNOSTIC STRIP TEST SCH ×4 (07:50→21:26)
[2019-01-28] MEDS: INSULIN LISPRO 100 UNITS/ML SUBCUT SCH ×4 (08:20→21:00)
[2019-01-28] MEDS ORDERED: POTASSIUM CHLORIDE 20MEQ/PACKET PO SCH (08:30)
[2019-01-28] MEDS: AMIODARONE HCL 200 MG TABLET PO SCH ×2 (09:09→20:45)
[2019-01-28] MEDS: CITRIC ACID/SODIUM CITRATE SOLN 15ML UDC PO SCH ×4 (09:09→17:00)
[2019-01-28] MEDS: NYSTATIN POWDER 15GM TOP SCH ×3 (09:09→17:54)
[2019-01-28] MEDS: METRONIDAZOLE 500 MG PREMIX 100 ML IV SCH ×2 (09:09→20:45)
[2019-01-28 12:47] LABS: PLATELET ESTIMATE NORMAL
[2019-01-28] MEDS: CARVEDILOL 3.125 MG TABLET PO SCH ×2 (13:00→20:45)
[2019-01-28] MEDS: MEROPENEM 1,000 MG in SODIUM CHLORIDE 0.9% 100 ML IV SCH (15:48)
[2019-01-29] VITALS (17 sets, daily range): BP systolic 104–139; BP diastolic 44–68
[2019-01-29] MEDS: MEROPENEM 1,000 MG in SODIUM CHLORIDE 0.9% 100 ML IV SCH ×2 (02:17→15:00)
[2019-01-29 05:24] LABS: BASOPHILS % 0.2 % (0.0-2.0); EOSINOPHILS % 0.6 % (0.0-5.0); HEMATOCRIT. 25.8 % (36.0-48.0); HEMOGLOBIN. 8.3 g/dL (12.0-16.0); LYMPHOCYTES % 8.3 % (20.0-50.0); MEAN CORPUSCULAR HEMOGLOBIN 30.4 pg (28.0-32.0); MEAN CORPUSCULAR VOLUME 94.8 fL (81.0-99.0); MEAN PLATELET VOLUME 6.9 fl (7.4-10.4); MONOCYTES % 4.9 % (2.0-8.0); PLATELET 329 x1000/uL (130-400); RED BLOOD CELL COUNT 2.72 mill/uL (4.2-5.4); RED CELL DISTRIBUTION WIDTH 16.3 % (11.6-14.6)
[2019-01-29] MEDS: BLOOD SUGAR DIAGNOSTIC STRIP TEST SCH ×4 (06:55→21:49)
[2019-01-29] MEDS: INSULIN LISPRO 100 UNITS/ML SUBCUT SCH ×4 (06:55→21:00)
[2019-01-29] MEDS: CITRIC ACID/SODIUM CITRATE SOLN 15ML UDC PO SCH ×3 (08:39→16:23)
[2019-01-29] MEDS: CARVEDILOL 3.125 MG TABLET PO SCH ×2 (08:39→21:00)
[2019-01-29] MEDS: NYSTATIN POWDER 15GM TOP SCH ×3 (08:39→16:24)
[2019-01-29] MEDS: AMIODARONE HCL 200 MG TABLET PO SCH ×2 (08:39→21:00)
[2019-01-29] MEDS: METRONIDAZOLE 500 MG PREMIX 100 ML IV SCH ×2 (08:40→21:11)
[2019-01-29] MEDS ORDERED: VANCOMYCIN 1 G PREMIX 200 ML IV NR (14:00)
[2019-01-29] MEDS: DEXT 5%/0.45% NACL 1000ML 1,000 ML IV SCH (16:24)
[2019-01-30] VITALS (11 sets, daily range): BP systolic 98–136; BP diastolic 50–83
[2019-01-30] MEDS: DEXT 5%/0.45% NACL 1000ML 1,000 ML IV SCH (00:51)
[2019-01-30] MEDS: MEROPENEM 1,000 MG in SODIUM CHLORIDE 0.9% 100 ML IV SCH ×2 (02:25→15:00)
[2019-01-30] MEDS: BLOOD SUGAR DIAGNOSTIC STRIP TEST SCH ×4 (06:56→21:37)
[2019-01-30] MEDS: INSULIN LISPRO 100 UNITS/ML SUBCUT SCH ×4 (06:56→21:00)
[2019-01-30 07:27] LABS: BASOPHILS % 0.3 % (0.0-2.0); EOSINOPHILS % 0.8 % (0.0-5.0); HEMOGLOBIN. 8.9 g/dL (12.0-16.0); LYMPHOCYTES % 10.4 % (20.0-50.0); MEAN CORPUSCULAR HEMOGLOBIN 30.3 pg (28.0-32.0); MEAN CORPUSCULAR VOLUME 91.9 fL (81.0-99.0); MEAN PLATELET VOLUME 7.3 fl (7.4-10.4); MONOCYTES % 4.1 % (2.0-8.0); NEUTROPHILS % 84.4 % (40.0-76.0); PLATELET 343 x1000/uL (130-400); RED BLOOD CELL COUNT 2.94 mill/uL (4.2-5.4); RED CELL DISTRIBUTION WIDTH 15.9 % (11.6-14.6)
[2019-01-30 07:49] LABS: CHLORIDE 109 mEq/L (98-107)
[2019-01-30] MEDS ORDERED: POTASSIUM CHLORIDE 20MEQ/PACKET PO NR (08:30)
[2019-01-30] MEDS: CITRIC ACID/SODIUM CITRATE SOLN 15ML UDC PO SCH ×3 (08:53→17:00)
[2019-01-30] MEDS: METRONIDAZOLE 500 MG PREMIX 100 ML IV SCH (08:53)
[2019-01-30] MEDS: CARVEDILOL 3.125 MG TABLET PO SCH ×2 (08:53→20:21)
[2019-01-30] MEDS: AMIODARONE HCL 200 MG TABLET PO SCH ×2 (08:53→20:30)
[2019-01-30] MEDS: NYSTATIN POWDER 15GM TOP SCH ×3 (08:54→17:02)
[2019-01-30] MEDS ORDERED: METRONIDAZOLE 500MG TABLET PO SCH (21:00)
[2019-01-30] MEDS ORDERED: ASCORBIC ACID 250 MG TABLET PO SCH (21:00)
[2019-01-31] VITALS: BP 135/71
[2019-01-31] MEDS ORDERED: ASCORBIC ACID 250 MG TABLET PO SCH
[2019-01-31 04:00] VITALS: BP 125/63
[2019-01-31] MEDS: INSULIN LISPRO 100 UNITS/ML SUBCUT SCH ×4 (07:50→21:40)
[2019-01-31] MEDS: BLOOD SUGAR DIAGNOSTIC STRIP TEST SCH ×4 (07:57→21:40)
[2019-01-31 08:00] VITALS: BP 128/80
[2019-01-31] MEDS: CARVEDILOL 3.125 MG TABLET PO SCH ×2 (09:00→22:23)
[2019-01-31] MEDS: CITRIC ACID/SODIUM CITRATE SOLN 15ML UDC PO SCH ×3 (09:00→17:41)
[2019-01-31] MEDS: AMIODARONE HCL 200 MG TABLET PO SCH ×2 (09:00→22:20)
[2019-01-31] MEDS: NYSTATIN POWDER 15GM TOP SCH ×3 (09:00→17:41)
[2019-01-31 12:00] VITALS: BP 121/56
[2019-01-31] MEDS: ASCORBIC ACID 250 MG TABLET PO SCH ×2 (12:50→17:41)
[2019-01-31 16:00] VITALS: BP 137/47
[2019-01-31 18:26] LABS: BASOPHILS % 0.7 % (0.0-2.0); EOSINOPHILS % 1.2 % (0.0-5.0); HEMATOCRIT. 36.7 % (36.0-48.0); HEMOGLOBIN. 11.5 g/dL (12.0-16.0); LYMPHOCYTES % 15.6 % (20.0-50.0); MEAN CORPUSCULAR HEMOGLOBIN 29.8 pg (28.0-32.0); MEAN CORPUSCULAR VOLUME 95.1 fL (81.0-99.0); MEAN PLATELET VOLUME 7.6 fl (7.4-10.4); MONOCYTES % 6.2 % (2.0-8.0); NEUTROPHILS % 76.3 % (40.0-76.0); PLATELET 243 x1000/uL (130-400); RED BLOOD CELL COUNT 3.86 mill/uL (4.2-5.4); RED CELL DISTRIBUTION WIDTH 16.4 % (11.6-14.6)
[2019-01-31 20:00] VITALS: BP 140/39
[2019-01-31 20:17] LABS: PLATELET ESTIMATE NORMAL
[2019-02-01] VITALS: BP 125/50
[2019-02-01 04:00] VITALS: BP 125/50
[2019-02-01] MEDS: INSULIN LISPRO 100 UNITS/ML SUBCUT SCH ×3 (07:50→17:50)
[2019-02-01] MEDS: BLOOD SUGAR DIAGNOSTIC STRIP TEST SCH ×3 (08:16→18:02)
[2019-02-01] MEDS: CARVEDILOL 3.125 MG TABLET PO SCH (09:00)
[2019-02-01] MEDS: NYSTATIN POWDER 15GM TOP SCH ×2 (09:00→18:02)
[2019-02-01 09:14] LABS: BASOPHILS % 0.5 % (0.0-2.0); EOSINOPHILS % 1.1 % (0.0-5.0); HEMATOCRIT. 30.9 % (36.0-48.0); HEMOGLOBIN. 9.7 g/dL (12.0-16.0); LYMPHOCYTES % 17.5 % (20.0-50.0); MEAN CORPUSCULAR HEMOGLOBIN 30.3 pg (28.0-32.0); MEAN PLATELET VOLUME 6.8 fl (7.4-10.4); MONOCYTES % 4.8 % (2.0-8.0); NEUTROPHILS % 76.1 % (40.0-76.0); PLATELET 348 x1000/uL (130-400); RED BLOOD CELL COUNT 3.22 mill/uL (4.2-5.4); RED CELL DISTRIBUTION WIDTH 16.1 % (11.6-14.6)
[2019-02-01] MEDS: CITRIC ACID/SODIUM CITRATE SOLN 15ML UDC PO SCH ×3 (09:49→18:00)
[2019-02-01] MEDS: ASCORBIC ACID 250 MG TABLET PO SCH ×3 (09:49→18:01)
[2019-02-01] MEDS: AMIODARONE HCL 200 MG TABLET PO SCH (09:49)
[2019-02-01 12:00] VITALS: BP 145/45
[2019-02-01 16:00] VITALS: BP 140/44
[2019-02-01 19:00] VITALS: BP 140/44
== END 2019-02-01 19:33 | disposition home health service (06) | DRG 710 ==
LOC: ER 01:54 → CVICU 04:30 → EDBEDREQ 04:33 → EDBEDREQTM 04:33 → EDBEDREQSVC 04:33 → ENRESERV 07:08 → 3WST 01-29 03:00 → 6EST 01-30 21:22
PROVIDERS: ADMIT Hospitalist; ATTEND Hospitalist
PROC: 30233N1 Transfusion of Nonautologous Red Blood Cells into Peripheral Vein, Percutaneous Approach (ICD-10-PCS; 2019-01-25)
PROC: 0Y6J0Z3 Detachment at Left Lower Leg, Low, Open Approach (ICD-10-PCS; principal; 2019-01-27)
DX: A41.9 Sepsis, unspecified organism (principal); E43 Unspecified severe protein-calorie malnutrition; N17.0 Acute kidney failure with tubular necrosis; A48.0 Gas gangrene; E87.2 Acidosis; E11.22 Type 2 diabetes mellitus with diabetic chronic kidney disease; E11.52 Type 2 diabetes mellitus with diabetic peripheral angiopathy with gangrene; E11.621 Type 2 diabetes mellitus with foot ulcer; I48.91 Unspecified atrial fibrillation; D63.8 Anemia in other chronic diseases classified elsewhere; B95.62 Methicillin resistant Staphylococcus aureus infection as the cause of diseases classified elsewhere; D50.9 Iron deficiency anemia, unspecified; E11.69 Type 2 diabetes mellitus with other specified complication; E78.00 Pure hypercholesterolemia, unspecified; E78.5 Hyperlipidemia, unspecified; F03.90 Unspecified dementia, unspecified severity, without behavioral disturbance, psychotic disturbance, mood disturbance, and anxiety; I08.1 Rheumatic disorders of both mitral and tricuspid valves; I13.10 Hypertensive heart and chronic kidney disease without heart failure, with stage 1 through stage 4 chronic kidney disease, or unspecified chronic kidney disease; I25.10 Atherosclerotic heart disease of native coronary artery without angina pectoris; N39.0 Urinary tract infection, site not specified; N18.3 Chronic kidney disease, stage 3 (moderate); M48.00 Spinal stenosis, site unspecified; J44.9 Chronic obstructive pulmonary disease, unspecified; L89.009 Pressure ulcer of unspecified elbow, unspecified stage; L97.529 Non-pressure chronic ulcer of other part of left foot with unspecified severity; I49.1 Atrial premature depolarization; M24.571 Contracture, right ankle; M24.572 Contracture, left ankle; L89.92 Pressure ulcer of unspecified site, stage 2; M86.672 Other chronic osteomyelitis, left ankle and foot; Z89.512 Acquired absence of left leg below knee; Z89.511 Acquired absence of right leg below knee; Z88.0 Allergy status to penicillin; Z87.440 Personal history of urinary (tract) infections; Z86.73 Personal history of transient ischemic attack (TIA), and cerebral infarction without residual deficits; Z79.899 Other long term (current) drug therapy; Z74.01 Bed confinement status; Z22.322 Carrier or suspected carrier of Methicillin resistant Staphylococcus aureus; Z68.32 Body mass index [BMI] 32.0-32.9, adult; I25.2 Old myocardial infarction
CPT/HCPCS: 36415; 36600; 71045; 73600; 73700; 80048; 80202; 81003; 82375; 82550; 82553; 82805; 82962; 83605; 84134; 84145; 84439; 84443; 84484; 85651; 86140; 86850; 86900; 86920; 87070; 87077; 87106; 87186; 88307; 88311; 93005; 93306; 97162; 99291; A4216; A6261; J0282; J0713; J0878; J1815; J2185; J2270; J2704; J3010; J3370; J3490; J7030; J7050; J7060; P9016; A4315

== ENCOUNTER 2019-02-09 03:38 | Inpatient (IN) | payer MEDICARE, MEDICAID ==
[2019-02-09] VITALS (8 sets, daily range): BP systolic 92–141; BP diastolic 56–86
[~2019-02-09] VITALS: Ht 170.2 cm; Wt 94.3 kg
[~2019-02-09 03:38] MED LIST changes: +ASPI-1393 MT; -VALS80TA30 MT
[2019-02-09] MEDS ORDERED: ONDANSETRON HCL 4MG/2ML INJ IV STA (04:02)
[2019-02-09] MEDS ORDERED: VANCOMYCIN 1 G PREMIX 200 ML IV ONE (04:15)
[2019-02-09] MEDS ORDERED: MEROPENEM 1,000 MG in SODIUM CHLORIDE 0.9% 100 ML IV ONE (04:15)
[2019-02-09 04:34] LABS: BG BASE EXCESS -5.9 mmol/L (-2.0-2.0); BG CARBOXYHEMOGLOBIN 0.3 % (0.5-1.5); BG DEOXYHEMOGLOBIN 7.3 % (0.0-5.0); BG FRACTION INSPIRED OXYGEN 21; BG METHEMOGLOBIN 0.1 % (0.0-1.5); BG OXYGEN SATURATION 92.7 % (92.0-98.5); BG OXYHEMOGLOBIN 92.3 % (94.0-97.0); BG PCO2 34.8 mmHg (35.0-45.0); BG PH 7.354 (7.350-7.450); BG PO2 71.8 mmHg (75.0-100.0); BG SAMPLE SITE RIGHT RADIAL; BG TOTAL HEMOGLOBIN 9.6 g/dL (12.0-18.0); BG VENT MODE ROOM AIR
[2019-02-09 04:46] LABS: BASOPHILS % 0.4 % (0.0-2.0); EOSINOPHILS % 0.5 % (0.0-5.0); HEMATOCRIT. 23.7 % (36.0-48.0); HEMOGLOBIN. 7.7 g/dL (12.0-16.0); LYMPHOCYTES % 17.2 % (20.0-50.0); MEAN CORPUSCULAR HEMOGLOBIN 31.2 pg (28.0-32.0); MEAN CORPUSCULAR VOLUME 95.6 fL (81.0-99.0); MEAN PLATELET VOLUME 8.2 fl (7.4-10.4); MONOCYTES % 5.9 % (2.0-8.0); PLATELET 220 x1000/uL (130-400); RED BLOOD CELL COUNT 2.48 mill/uL (4.2-5.4); RED CELL DISTRIBUTION WIDTH 18.4 % (11.6-14.6)
[2019-02-09 04:50] LABS: CHLORIDE 121 mEq/L (98-107); INR 1.2; PROTHROMBIN TIME 11.8 sec (9.6-11.0)
[2019-02-09] MEDS ORDERED: METOPROLOL TARTRATE 5MG/5ML VIAL IV SCH (05:00)
[2019-02-09 05:51] LABS: CLARITY URINE TURBID (CLEAR); COLOR URINE YELLOW (YELLOW); KETONES URINE NEGATIVE (NEGATIVE); LEUKOCYTE ESTERASE URINE 1+ (NEGATIVE); NITRITE URINE NEGATIVE (NEGATIVE); OCCULT BLOOD URINE NEGATIVE (NEGATIVE); PROTEIN URINE 2+ (NEGATIVE); SPECIFIC GRAVITY URINE 1.018 (1.005-1.030); UROBILINOGEN URINE 0.2 E.U./dL (0.2-1.0)
[2019-02-09] MEDS ORDERED: NITROGLYCERIN 0.4MG TABLET SL SL PRN (10:30)
[2019-02-09] MEDS ORDERED: ACETAMINOPHEN 325MG TABLET PO PRN ×2 (10:30→11:30)
[2019-02-09] MEDS ORDERED: ONDANSETRON HCL 4MG/2ML INJ IV PRN ×2 (10:30→11:30)
[2019-02-09] MEDS ORDERED: DIGOXIN 500MCG/2ML AMP IV NR (10:30)
[2019-02-09 11:00] LABS: T4 FREE 1.02 ng/dL (0.76-1.46)
[2019-02-09] MEDS ORDERED: CLONIDINE 0.1MG TABLET PO PRN (11:30)
[2019-02-09] MEDS ORDERED: DOCUSATE SODIUM 100MG CAPSULE PO PRN (11:30)
[2019-02-09] MEDS ORDERED: HYDROCODONE/ACETAMINOPHEN 5/325MG TABLET PO PRN (11:30)
[2019-02-09] MEDS ORDERED: DILTIAZEM HCL 30MG TABLET PO SCH (12:00)
[2019-02-09] MEDS ORDERED: AMIODARONE HCL 150 MG in DEXT 5% WATER 100 ML IV NR (12:00)
[2019-02-09] MEDS ORDERED: FUROSEMIDE 20MG/2ML VIAL IVP NR (12:00)
[2019-02-09] MEDS ORDERED: LEVOFLOXACIN 500MG PREMIX 100 ML IV NR (12:00)
[2019-02-09] MEDS ORDERED: AMIODARONE HCL 900 MG in DEXT 5% WATER 482 ML IV SCH (12:30)
[2019-02-09] MEDS: FUROSEMIDE 20MG/2ML VIAL IVP SCH (12:32)
[2019-02-10] VITALS (14 sets, daily range): BP systolic 116–170; BP diastolic 58–85
[2019-02-10 06:33] LABS: CHLORIDE 118 mEq/L (98-107)
[2019-02-10 06:44] LABS: LDL CHOLESTEROL 67 mg/dL (5-100)
[2019-02-10 06:47] LABS: HDL CHOLESTEROL 42 mg/dL (40-59)
[2019-02-10] MEDS: FUROSEMIDE 20MG/2ML VIAL IVP SCH (08:24)
[2019-02-10] MEDS: AMIODARONE HCL 200 MG TABLET PO SCH ×2 (10:47→21:24)
[2019-02-10 11:49] LABS: BASOPHILS % 0.3 % (0.0-2.0); EOSINOPHILS % 1.2 % (0.0-5.0); HEMATOCRIT. 24.6 % (36.0-48.0); LYMPHOCYTES % 19.7 % (20.0-50.0); MEAN CORPUSCULAR HEMOGLOBIN 31.2 pg (28.0-32.0); MEAN PLATELET VOLUME 8.4 fl (7.4-10.4); MONOCYTES % 6.7 % (2.0-8.0); NEUTROPHILS % 72.1 % (40.0-76.0); PLATELET 191 x1000/uL (130-400); RED BLOOD CELL COUNT 2.55 mill/uL (4.2-5.4); RED CELL DISTRIBUTION WIDTH 19.2 % (11.6-14.6)
[2019-02-10 11:53] LABS: MEAN CORPUSCULAR VOLUME 96.3 fL (81.0-99.0)
[2019-02-10] MEDS: GUAIFENESIN 600MG ER TABLET PO SCH ×2 (13:41→21:25)
[2019-02-10] MEDS: LEVOFLOXACIN 250MG PREMIX 50 ML IV SCH (14:48)
[2019-02-10] MEDS: DIGOXIN 500MCG/2ML AMP IV SCH (17:31)
[2019-02-11] VITALS (12 sets, daily range): BP systolic 104–165; BP diastolic 45–95
[2019-02-11 06:57] LABS: BASOPHILS % 0.3 % (0.0-2.0); EOSINOPHILS % 1.5 % (0.0-5.0); HEMATOCRIT. 25.3 % (36.0-48.0); HEMOGLOBIN. 8.3 g/dL (12.0-16.0); LYMPHOCYTES % 16.8 % (20.0-50.0); MEAN CORPUSCULAR HEMOGLOBIN 31.9 pg (28.0-32.0); MEAN CORPUSCULAR VOLUME 97.3 fL (81.0-99.0); MEAN PLATELET VOLUME 8.7 fl (7.4-10.4); MONOCYTES % 6.8 % (2.0-8.0); NEUTROPHILS % 74.6 % (40.0-76.0); PLATELET 194 x1000/uL (130-400); RED CELL DISTRIBUTION WIDTH 19.3 % (11.6-14.6)
[2019-02-11 08:34] LABS: CHLORIDE 119 mEq/L (98-107)
[2019-02-11] MEDS ORDERED: FUROSEMIDE 20MG/2ML VIAL IVP SCH (09:00)
[2019-02-11] MEDS: GUAIFENESIN 600MG ER TABLET PO SCH ×2 (09:24→21:19)
[2019-02-11] MEDS: AMIODARONE HCL 200 MG TABLET PO SCH ×2 (09:24→21:19)
[2019-02-11] MEDS: LEVOFLOXACIN 250MG PREMIX 50 ML IV SCH (14:00)
[2019-02-11] MEDS: DIGOXIN 500MCG/2ML AMP IV SCH (18:25)
[2019-02-12] VITALS (12 sets, daily range): BP systolic 105–166; BP diastolic 36–137
[2019-02-12] MEDS: GUAIFENESIN 600MG ER TABLET PO SCH ×2 (09:34→21:43)
[2019-02-12] MEDS: FUROSEMIDE 40MG TABLET PO SCH (09:35)
[2019-02-12] MEDS: AMIODARONE HCL 200 MG TABLET PO SCH ×2 (09:35→21:43)
[2019-02-12 09:49] LABS: BASOPHILS % 0.4 % (0.0-2.0); EOSINOPHILS % 1.4 % (0.0-5.0); HEMATOCRIT. 26.5 % (36.0-48.0); HEMOGLOBIN. 8.5 g/dL (12.0-16.0); LYMPHOCYTES % 21.3 % (20.0-50.0); MEAN CORPUSCULAR HEMOGLOBIN 31.2 pg (28.0-32.0); MEAN PLATELET VOLUME 8.6 fl (7.4-10.4); MONOCYTES % 5.4 % (2.0-8.0); NEUTROPHILS % 71.5 % (40.0-76.0); PLATELET 207 x1000/uL (130-400); RED BLOOD CELL COUNT 2.73 mill/uL (4.2-5.4); RED CELL DISTRIBUTION WIDTH 19.1 % (11.6-14.6)
[2019-02-12] MEDS ORDERED: FLUCONAZOLE 100MG TABLET PO SCH (12:45)
[2019-02-12] MEDS: LEVOFLOXACIN 250MG PREMIX 50 ML IV SCH (13:32)
[2019-02-12] MEDS: DIGOXIN 125MCG TABLET PO SCH (18:09)
[2019-02-13] VITALS (12 sets, daily range): BP systolic 128–156; BP diastolic 60–82
[2019-02-13] MEDS: AMIODARONE HCL 200 MG TABLET PO SCH ×2 (09:25→20:43)
[2019-02-13] MEDS: FUROSEMIDE 40MG TABLET PO SCH (09:25)
[2019-02-13] MEDS: GUAIFENESIN 600MG ER TABLET PO SCH ×2 (09:25→20:43)
[2019-02-13] MEDS ORDERED: AMLODIPINE 2.5MG TABLET PO NR (10:29)
[2019-02-13] MEDS: LEVOFLOXACIN 250MG PREMIX 50 ML IV SCH (14:00)
[2019-02-13] MEDS: DIGOXIN 125MCG TABLET PO SCH (18:00)
[2019-02-13] MEDS ORDERED: AMIO100T4 PO ×2 (18:02→18:03)
[2019-02-14] MEDS ORDERED: AMLODIPINE 2.5MG TABLET PO SCH (09:00)
== END 2019-02-13 21:30 | disposition home health service (06) | DRG 720 ==
LOC: ER 03:38 → 3WST 05:04 → EDBEDREQTM 05:12 → EDBEDREQ 05:12 → ENRESERV 07:10
PROVIDERS: ADMIT Hospitalist; ATTEND Hospitalist
PROC: 02HV33Z Insertion of Infusion Device into Superior Vena Cava, Percutaneous Approach (ICD-10-PCS; principal; 2019-02-10)
PROC: B548ZZA Ultrasonography of Superior Vena Cava, Guidance (ICD-10-PCS; 2019-02-10)
DX: A41.9 Sepsis, unspecified organism (principal); N17.0 Acute kidney failure with tubular necrosis; I50.23 Acute on chronic systolic (congestive) heart failure; E46 Unspecified protein-calorie malnutrition; E11.22 Type 2 diabetes mellitus with diabetic chronic kidney disease; E11.51 Type 2 diabetes mellitus with diabetic peripheral angiopathy without gangrene; I48.0 Paroxysmal atrial fibrillation; I08.1 Rheumatic disorders of both mitral and tricuspid valves; I48.92 Unspecified atrial flutter; I42.9 Cardiomyopathy, unspecified; D63.8 Anemia in other chronic diseases classified elsewhere; I13.0 Hypertensive heart and chronic kidney disease with heart failure and stage 1 through stage 4 chronic kidney disease, or unspecified chronic kidney disease; N39.0 Urinary tract infection, site not specified; F03.90 Unspecified dementia, unspecified severity, without behavioral disturbance, psychotic disturbance, mood disturbance, and anxiety; N18.9 Chronic kidney disease, unspecified; E78.5 Hyperlipidemia, unspecified; J44.9 Chronic obstructive pulmonary disease, unspecified; L98.8 Other specified disorders of the skin and subcutaneous tissue; Z89.512 Acquired absence of left leg below knee; Z74.01 Bed confinement status; Z79.899 Other long term (current) drug therapy; Z86.73 Personal history of transient ischemic attack (TIA), and cerebral infarction without residual deficits; Z88.0 Allergy status to penicillin; Z79.82 Long term (current) use of aspirin; Z68.32 Body mass index [BMI] 32.0-32.9, adult
CPT/HCPCS: 36415; 36600; 71045; 76937; 80048; 80061; 81003; 82375; 82805; 82962; 83605; 83735; 83880; 84134; 84145; 84439; 84443; 84484; 87106; 93005; 99291; A6261; C1725; J0282; J1160; J1940; J1956; J2185; J2405; J3370; J3490; J7050; J7060

== ENCOUNTER 2019-02-17 23:18 | Inpatient (IN) | payer MEDICARE, MEDICAID ==
[~2019-02-17] VITALS: Ht 172.7 cm; Wt 95.3 kg
[2019-02-18 01:25] LABS: EOSINOPHILS % 2.6 % (0.0-5.0); HEMOGLOBIN. 7.9 g/dL (12.0-16.0); LYMPHOCYTES % 22.5 % (20.0-50.0); MEAN CORPUSCULAR HEMOGLOBIN 31.5 pg (28.0-32.0); MEAN CORPUSCULAR VOLUME 95.5 fL (81.0-99.0); MONOCYTES % 7.9 % (2.0-8.0); PLATELET 162 x1000/uL (130-400); RED BLOOD CELL COUNT 2.51 mill/uL (4.2-5.4); RED CELL DISTRIBUTION WIDTH 19.8 % (11.6-14.6)
[2019-02-18 01:29] LABS: CHLORIDE 122 mEq/L (98-107)
[2019-02-18] MEDS ORDERED: LEVOFLOXACIN 750MG PREMIX 150 ML IV ONE (02:45)
[2019-02-18] MEDS ORDERED: HYDRALAZINE 20MG/ML VIAL IV ONE (03:30)
[2019-02-18] MEDS ORDERED: FUROSEMIDE 40MG/4ML VIAL IVP ONE (03:30)
[2019-02-18 05:30] VITALS: BP 171/60
[2019-02-18 08:00] VITALS: BP_SYST 145; BP_DIAS 56; BP_DIAS 65
[2019-02-18] MEDS ORDERED: ASCO100T2 PO (08:59)
[2019-02-18] MEDS ORDERED: AMI2 MT (08:59)
[2019-02-18] MEDS ORDERED: DIGO125T82 MT (08:59)
[2019-02-18] MEDS ORDERED: FUROSEMIDE 40MG/4ML VIAL IVP SCH (09:30)
[2019-02-18] MEDS ORDERED: ACETAMINOPHEN 325MG TABLET PO PRN (09:30)
[2019-02-18] MEDS ORDERED: ONDANSETRON HCL 4MG/2ML INJ IV PRN (09:30)
[2019-02-18] MEDS ORDERED: LEVOFLOXACIN 500MG PREMIX 100 ML IV SCH (09:30)
[2019-02-18] MEDS ORDERED: IPRATROPIUM/ALBUTEROL 0.5-3(2.5)MG/3ML NEB HHN PRN (09:30)
[2019-02-18] MEDS: AMLODIPINE 5MG TABLET PO SCH ×2 (11:27→21:37)
[2019-02-18 12:00] VITALS: BP 162/57
[2019-02-18 13:56] LABS: CLARITY URINE CLEAR (CLEAR); COLOR URINE YELLOW (YELLOW); KETONES URINE NEGATIVE (NEGATIVE); LEUKOCYTE ESTERASE URINE NEGATIVE (NEGATIVE); NITRITE URINE NEGATIVE (NEGATIVE); OCCULT BLOOD URINE NEGATIVE (NEGATIVE); PROTEIN URINE 1+ (NEGATIVE); SPECIFIC GRAVITY URINE 1.008 (1.005-1.030); UROBILINOGEN URINE 0.2 E.U./dL (0.2-1.0)
[2019-02-18] MEDS: IRON SUCROSE COMPLEX 100 MG/5 ML ML IV SCH (14:42)
[2019-02-18 16:00] VITALS: BP 144/46
[2019-02-18] MEDS: IPRATROPIUM/ALBUTEROL 0.5-3(2.5)MG/3ML NEB HHN SCH ×2 (16:21→20:56)
[2019-02-18] MEDS ORDERED: HYDROCODONE/ACETAMINOPHEN 5/325MG TABLET PO PRN (17:00)
[2019-02-18] MEDS: FUROSEMIDE 40MG/4ML VIAL IVP SCH (18:25)
[2019-02-18 20:00] VITALS: BP 158/43
[2019-02-18] MEDS: GUAIFENESIN 600MG ER TABLET PO SCH (21:37)
[2019-02-19] VITALS: BP 155/55
[2019-02-19] MEDS: IPRATROPIUM/ALBUTEROL 0.5-3(2.5)MG/3ML NEB HHN SCH ×5 (00:32→21:09)
[2019-02-19] MEDS: NYSTATIN POWDER 15GM TOP SCH ×4 (01:58→17:01)
[2019-02-19] MEDS: FUROSEMIDE 40MG/4ML VIAL IVP SCH ×2 (05:33→17:01)
[2019-02-19 06:57] LABS: BASOPHILS % 0.9 % (0.0-2.0); EOSINOPHILS % 1.1 % (0.0-5.0); HEMATOCRIT. 22.6 % (36.0-48.0); HEMOGLOBIN. 7.2 g/dL (12.0-16.0); LYMPHOCYTES % 16.6 % (20.0-50.0); MEAN CORPUSCULAR HEMOGLOBIN 31.7 pg (28.0-32.0); MEAN CORPUSCULAR VOLUME 98.8 fL (81.0-99.0); MEAN PLATELET VOLUME 8.6 fl (7.4-10.4); MONOCYTES % 8.9 % (2.0-8.0); NEUTROPHILS % 72.5 % (40.0-76.0); PLATELET 184 x1000/uL (130-400); RED BLOOD CELL COUNT 2.29 mill/uL (4.2-5.4); RED CELL DISTRIBUTION WIDTH 20.6 % (11.6-14.6)
[2019-02-19 08:00] VITALS: BP 125/62
[2019-02-19 08:20] LABS: DIGOXIN 1.3 ng/mL (0.9-2.0)
[2019-02-19] MEDS: GUAIFENESIN 600MG ER TABLET PO SCH ×2 (09:11→21:40)
[2019-02-19] MEDS: IRON SUCROSE COMPLEX 100 MG/5 ML ML IV SCH (09:11)
[2019-02-19] MEDS: AMLODIPINE 5MG TABLET PO SCH ×2 (09:12→21:40)
[2019-02-19 12:00] VITALS: BP 114/62
[2019-02-19] MEDS ORDERED: METHYLPREDNISOLONE SOD SUCC 40 MG/ML VIAL IV SCH (12:00)
[2019-02-19 16:00] VITALS: BP 158/42
[2019-02-19 20:00] VITALS: BP 134/62
[2019-02-19] MEDS: BUDESONIDE 0.5MG/2ML NEB HHN SCH (21:10)
[2019-02-20] VITALS (9 sets, daily range): BP systolic 143–172; BP diastolic 31–79
[2019-02-20] MEDS: IPRATROPIUM/ALBUTEROL 0.5-3(2.5)MG/3ML NEB HHN SCH ×4 (01:05→21:01)
[2019-02-20] MEDS: FUROSEMIDE 40MG/4ML VIAL IVP SCH ×2 (06:27→18:30)
[2019-02-20] MEDS ORDERED: SODIUM BICARBONATE 4% (2.4MEQ) 5ML VIAL IV ONE ×2 (08:00→12:50)
[2019-02-20] MEDS ORDERED: LIDOCAINE HCL 1% 20ML VIAL (Pyxis) INJ ONE ×2 (08:00→12:50)
[2019-02-20] MEDS ORDERED: METHYLPREDNISOLONE SOD SUCC 40 MG/ML VIAL IV SCH (09:00)
[2019-02-20] MEDS: BUDESONIDE 0.5MG/2ML NEB HHN SCH ×2 (09:27→21:01)
[2019-02-20] MEDS: IRON SUCROSE COMPLEX 100 MG/5 ML ML IV SCH (10:13)
[2019-02-20] MEDS: AMLODIPINE 5MG TABLET PO SCH ×2 (10:14→20:56)
[2019-02-20] MEDS: GUAIFENESIN 600MG ER TABLET PO SCH ×2 (10:15→20:56)
[2019-02-20] MEDS: LEVOFLOXACIN 500MG PREMIX 100 ML IV SCH (10:16)
[2019-02-20] MEDS: NYSTATIN POWDER 15GM TOP SCH ×3 (11:11→17:55)
[2019-02-20] MEDS: LORAZEPAM 2MG/ML CPJ IV NR ×2 (12:54→13:17)
[2019-02-20 16:16] LABS: MEAN CORPUSCULAR HEMOGLOBIN 30.9 pg (28.0-32.0); MEAN CORPUSCULAR VOLUME 96.1 fL (81.0-99.0); MEAN PLATELET VOLUME 8.7 fl (7.4-10.4); PLATELET 204 x1000/uL (130-400); RED BLOOD CELL COUNT 2.26 mill/uL (4.2-5.4); RED CELL DISTRIBUTION WIDTH 20.8 % (11.6-14.6)
[2019-02-20 16:42] LABS: HEMATOCRIT. 21.7 % (36.0-48.0)
[2019-02-20 20:53] LABS: PLATELET ESTIMATE NORMAL
[2019-02-21] VITALS: BP 153/62
[2019-02-21] MEDS: IPRATROPIUM/ALBUTEROL 0.5-3(2.5)MG/3ML NEB HHN SCH ×4 (02:06→21:15)
[2019-02-21 04:00] VITALS: BP 153/56
[2019-02-21] MEDS: FUROSEMIDE 40MG/4ML VIAL IVP SCH ×2 (06:36→18:09)
[2019-02-21 07:20] LABS: BASOPHILS % 0.3 % (0.0-2.0); HEMATOCRIT. 25.6 % (36.0-48.0); HEMOGLOBIN. 8.6 g/dL (12.0-16.0); LYMPHOCYTES % 7.9 % (20.0-50.0); MEAN CORPUSCULAR HEMOGLOBIN 31.5 pg (28.0-32.0); MEAN CORPUSCULAR VOLUME 94.3 fL (81.0-99.0); MEAN PLATELET VOLUME 8.8 fl (7.4-10.4); MONOCYTES % 10.4 % (2.0-8.0); NEUTROPHILS % 81.4 % (40.0-76.0); PLATELET 216 x1000/uL (130-400); RED BLOOD CELL COUNT 2.71 mill/uL (4.2-5.4); RED CELL DISTRIBUTION WIDTH 19.9 % (11.6-14.6)
[2019-02-21 08:00] VITALS: BP 156/55
[2019-02-21] MEDS: BUDESONIDE 0.5MG/2ML NEB HHN SCH ×2 (08:40→21:15)
[2019-02-21] MEDS: PREDNISONE 20MG TABLET PO SCH (10:05)
[2019-02-21] MEDS: AMLODIPINE 5MG TABLET PO SCH ×2 (10:05→20:31)
[2019-02-21] MEDS: NYSTATIN POWDER 15GM TOP SCH ×2 (10:06→18:10)
[2019-02-21] MEDS: GUAIFENESIN 600MG ER TABLET PO SCH ×2 (10:06→20:31)
[2019-02-21 12:00] VITALS: BP 151/51
[2019-02-21] MEDS ORDERED: CLONIDINE 0.1MG TABLET PO PRN (12:30)
[2019-02-21 16:00] VITALS: BP 149/55
[2019-02-21 20:39] VITALS: BP 170/49
[2019-02-22] VITALS (7 sets, daily range): BP systolic 111–152; BP diastolic 39–87
[2019-02-22] MEDS: IPRATROPIUM/ALBUTEROL 0.5-3(2.5)MG/3ML NEB HHN SCH ×4 (02:49→19:58)
[2019-02-22] MEDS: FUROSEMIDE 40MG/4ML VIAL IVP SCH ×2 (06:48→16:50)
[2019-02-22] MEDS: NYSTATIN POWDER 15GM TOP SCH ×3 (08:44→16:50)
[2019-02-22] MEDS: PREDNISONE 20MG TABLET PO SCH (08:45)
[2019-02-22] MEDS: AMLODIPINE 5MG TABLET PO SCH (08:45)
[2019-02-22] MEDS: GUAIFENESIN 600MG ER TABLET PO SCH (08:45)
[2019-02-22] MEDS: BUDESONIDE 0.5MG/2ML NEB HHN SCH (09:35)
[2019-02-22 10:48] LABS: BASOPHILS % 0.2 % (0.0-2.0); HEMATOCRIT. 24.2 % (36.0-48.0); HEMOGLOBIN. 7.9 g/dL (12.0-16.0); LYMPHOCYTES % 9.7 % (20.0-50.0); MEAN CORPUSCULAR HEMOGLOBIN 30.8 pg (28.0-32.0); MEAN CORPUSCULAR VOLUME 94.7 fL (81.0-99.0); MEAN PLATELET VOLUME 8.7 fl (7.4-10.4); MONOCYTES % 8.6 % (2.0-8.0); NEUTROPHILS % 81.5 % (40.0-76.0); PLATELET 211 x1000/uL (130-400); RED BLOOD CELL COUNT 2.55 mill/uL (4.2-5.4)
[2019-02-22 10:55] LABS: CHLORIDE 116 mEq/L (98-107)
[2019-02-22] MEDS: LEVOFLOXACIN 500MG PREMIX 100 ML IV SCH (11:07)
[2019-02-22] MEDS ORDERED: GUAI600T26 MT (17:47)
[2019-02-22] MEDS ORDERED: FURO-151 MT (17:47)
[2019-02-22] MEDS ORDERED: ALBU18HF2 IH (17:47)
== END 2019-02-22 21:52 | disposition home health service (06) | DRG 133 ==
LOC: ER 23:18 → 6WST 02-18 03:14 → ENRESERV 02-18 04:59
PROVIDERS: ADMIT Internal Medicine; ATTEND Internal Medicine
PROC: 30233N1 Transfusion of Nonautologous Red Blood Cells into Peripheral Vein, Percutaneous Approach (ICD-10-PCS; principal; 2019-02-20)
PROC: 02HV33Z Insertion of Infusion Device into Superior Vena Cava, Percutaneous Approach (ICD-10-PCS; 2019-02-20)
PROC: B5181ZA Fluoroscopy of Superior Vena Cava using Low Osmolar Contrast, Guidance (ICD-10-PCS; 2019-02-20)
PROC: B548ZZA Ultrasonography of Superior Vena Cava, Guidance (ICD-10-PCS; 2019-02-20)
DX: J96.00 Acute respiratory failure, unspecified whether with hypoxia or hypercapnia (principal); E43 Unspecified severe protein-calorie malnutrition; J18.9 Pneumonia, unspecified organism; I50.23 Acute on chronic systolic (congestive) heart failure; N18.4 Chronic kidney disease, stage 4 (severe); E11.22 Type 2 diabetes mellitus with diabetic chronic kidney disease; N17.9 Acute kidney failure, unspecified; E87.0 Hyperosmolality and hypernatremia; E11.51 Type 2 diabetes mellitus with diabetic peripheral angiopathy without gangrene; E87.8 Other disorders of electrolyte and fluid balance, not elsewhere classified; I08.1 Rheumatic disorders of both mitral and tricuspid valves; I13.0 Hypertensive heart and chronic kidney disease with heart failure and stage 1 through stage 4 chronic kidney disease, or unspecified chronic kidney disease; F03.90 Unspecified dementia, unspecified severity, without behavioral disturbance, psychotic disturbance, mood disturbance, and anxiety; I48.0 Paroxysmal atrial fibrillation; I42.9 Cardiomyopathy, unspecified; D64.9 Anemia, unspecified; I44.0 Atrioventricular block, first degree; Z86.73 Personal history of transient ischemic attack (TIA), and cerebral infarction without residual deficits; D63.1 Anemia in chronic kidney disease; J44.0 Chronic obstructive pulmonary disease with (acute) lower respiratory infection; Z89.512 Acquired absence of left leg below knee; Z88.0 Allergy status to penicillin
CPT/HCPCS: 36415; 36573; 71045; 76937; 78582; 80048; 80162; 81003; 82270; 82728; 82962; 83735; 83880; 84134; 84145; 84484; 86850; 86900; 86920; 93005; 97162; 99285; A9558; C1725; C1893; J0360; J1940; J1956; J2060; J2920; J3490; J7040; J7512; J7620; J7626; P9016; A4315

== ENCOUNTER 2019-03-10 21:51 | Emergency (ER) | payer MEDICARE, MEDICAID ==
[~2019-03-10] VITALS: Ht 170.2 cm; Wt 82.0 kg
[~2019-03-10 21:51] MED LIST changes: +ALBU18HF2 IH; +AMI2 MT; +ASCO100T2 PO; +DIGO125T82 MT; +FURO-151 MT; +GUAI600T26 MT
[2019-03-10 22:00] VITALS: BP 101/46
[2019-03-10] MEDS ORDERED: SODIUM CHLORIDE 0.9% 1,000 ML IV ONE (22:12)
[2019-03-10] MEDS ORDERED: ASPIRIN 300MG SUPP PR ONE (22:15)
[2019-03-10] MEDS ORDERED: EPINEPHRINE 1 MG in SODIUM CHLORIDE 0.9% 250 ML IV PRN (22:45)
[2019-03-10] MEDS ORDERED: EPINEPHRINE 0.1MG/ML (1:10,000) 10ML SYR ONE ×3 (23:03→23:12)
[2019-03-10] MEDS ORDERED: ALTEPLASE 100MG/VIAL IV NR (23:10)
[2019-03-10] MEDS ORDERED: SODIUM BICARBONATE 8.4% 1 MEQ/ML 50ML SYR IV ONE (23:10)
== END 2019-03-10 23:17 | disposition expired ==
LOC: ER 21:51
DX: I21.3 ST elevation (STEMI) myocardial infarction of unspecified site (principal); I46.9 Cardiac arrest, cause unspecified; R41.82 Altered mental status, unspecified; J44.9 Chronic obstructive pulmonary disease, unspecified; E11.9 Type 2 diabetes mellitus without complications; N28.9 Disorder of kidney and ureter, unspecified; Z86.73 Personal history of transient ischemic attack (TIA), and cerebral infarction without residual deficits; Z88.0 Allergy status to penicillin; Z79.899 Other long term (current) drug therapy
CPT/HCPCS: 31500; 36556; 92950; 93005; 94002; 96360; 99291; J2997; J3490; J7030; Z7610; A4315